=== PATIENT | female | born 1950 | race African-American/Black ===

== ENCOUNTER 2017-12-28 14:03 | Outpatient (CLI) | payer MEDICARE | END 2017-12-28 14:04 | disposition home or self-care (01) | LOC: BICULT 14:03 | PROVIDERS: ATTEND Family Medicine | DX: E04.9 Nontoxic goiter, unspecified (principal); E04.2 Nontoxic multinodular goiter | CPT/HCPCS: 76536 ==

== ENCOUNTER 2018-03-01 00:31 | Emergency (ER) | payer MEDICARE ==
[2018-03-01 01:10] LABS: #Basophils 0.1 thou/uL (0.0-0.2); #Eosinphils 0.2 thou/uL (0.0-0.7); #Lymphocytes 2.5 thou/uL (1.20-3.40); #Monocytes 0.7 thou/uL (0.11-0.59); #Neutrophils 4.3 thou/uL (1.40-6.50); %Monocytes 9.5 % (0.0-10.0); %Neutrophils 55.5 % (42.0-75.0); Hemoglobin 12.6 g/dL (12.0-16.0); Mean Corpuscular HGB CONC 32.2 g/dL (32.0-36.0); Mean Corpuscular Hemoglobin 27.6 pg (27.0-31.0); Mean Corpuscular Volume 85.8 fl (81.0-99.0); Mean Platelet Volume 9.5 fL (7.4-10.4); Platelet Count 176 thou/uL (130-400); RBC Distribution Width 13.6 % (11.5-14.5); Red Blood Cell (RBC) Count 4.55 mill/uL (4.20-5.40); White Blood Cell (WBC) Count 7.7 thou/uL (4.8-10.8)
[2018-03-01] MEDS ORDERED: Ondansetron ODT 4 MG TAB ONE (01:23)
[2018-03-01 01:38] LABS: ALT (SGPT) 15 U/L (8-55); AST (SGOT) 14 U/L (5-34); Alkaline Phosphatase 54 U/L (40-150); Anion Gap 10 mmol/L (10-20); BUN (Urea Nitrogen) 18 mg/dL (9.8-20.1); Bilirubin, Total 0.4 mg/dL (0.2-1.2); Calc. Creatinine Clearance 0 mL/min (70-130); Calcium 9.2 mg/dL (7.8-10.44); Carbon Dioxide 27 mmol/L (23-31); Chloride 106 mmol/L (98-107); Estimated GFR-MDRD 82; Globulin 3.1 g/dL (2.4-3.5); Glucose 194 mg/dL (80-115); Potassium 3.7 mmol/L (3.5-5.1); Protein, Total 7.1 g/dL (6.0-8.3); Sodium 139 mmol/L (136-145)
[2018-03-01 01:42] LABS: CKMB 0.7 ng/mL (0-6.6); Troponin I Less than 0.010 ng/mL (< 0.028)
--- NOTE | 2018-03-01 07:35 | RAD ---
SINGLE VIEW CHEST: Date: 03/01/18 COMPARISON: 04/21/09. HISTORY: Difficulty breathing that started tonight and dyspnea. FINDINGS: Single view of the chest shows a normal sized cardiomediastinal silhouette. There is no evidence of c onsolidation, mass, or pleural effusion. Degenerative changes are seen in the spine. IMPRESSION: No evidence of acute cardiopulmonary disease. POS: [facility]
== END 2018-03-01 02:44 | disposition home or self-care (01) ==
LOC: ERS 00:31
DX: R06.00 Dyspnea, unspecified (principal); R06.2 Wheezing; G47.30 Sleep apnea, unspecified; E78.00 Pure hypercholesterolemia, unspecified; I10 Essential (primary) hypertension; E11.9 Type 2 diabetes mellitus without complications; Z79.82 Long term (current) use of aspirin; Z79.899 Other long term (current) drug therapy
CPT/HCPCS: 36415; 71045; 80053; 82553; 83880; 84484; 85025; 93005; J7620; Q0162

== ENCOUNTER 2018-10-16 08:29 | Emergency (ER) | payer MEDICARE ==
[2018-10-16] MEDS ORDERED: HYDROcodone/Acetaminophen 10/325 mg Tablet ONE (09:16)
--- NOTE | 2018-10-16 11:10 | ULT ---
VENOUS DOPPLER ULTRASOUND OF THE LEFT LOWER EXTREMITY: Date: 10/16/18 HISTORY: Left lower extremity pain. FINDINGS: There is good flow, compression, and augmentation noted in the left common femoral, femoral, deep fem oral, popliteal, posterior tibial, and greater saphenous veins. IMPRESSION: No evidence of deep venous thrombosis in the left lower extremity. POS: [facility]
[2018-10-16] MEDS ORDERED: Dexamethasone 10 MG/ML VIAL ONE (11:43)
== END 2018-10-16 12:15 | disposition home or self-care (01) ==
LOC: ERS 08:29
DX: M79.662 Pain in left lower leg (principal); R60.0 Localized edema; G47.30 Sleep apnea, unspecified; I10 Essential (primary) hypertension; E78.00 Pure hypercholesterolemia, unspecified; E11.9 Type 2 diabetes mellitus without complications; Z86.73 Personal history of transient ischemic attack (TIA), and cerebral infarction without residual deficits; Z79.899 Other long term (current) drug therapy; Z79.82 Long term (current) use of aspirin; Z86.718 Personal history of other venous thrombosis and embolism; Z79.84 Long term (current) use of oral hypoglycemic drugs
CPT/HCPCS: 96372; J1100

== ENCOUNTER 2018-10-29 20:28 | Emergency (ER) | payer MEDICARE ==
[2018-10-29] MEDS ORDERED: traMADol HCl 50 MG TAB ONE (21:00)
--- NOTE | 2018-10-29 22:04 | ULT ---
LEFT LOWER EXTREMITY VENOUS DOPPLER DUPLEX ULTRASOUND: CPT: 95238 ICD-10-PCS: B54D INDICATIONS: Left lower extremity pain and edema. TECHNIQUE: Color-flow Doppler, spectral waveform analysis of pulsed Doppler, and obando-scale imaging with marie mariaelena and augmentation were used to evaluate the bilateral common femoral, femoral, popliteal, posteri or tibial, and superficial femoral veins, and the proximal portions of the profunda femoral and great er saphenous veins. FINDINGS: There is appropriate compressibility and flow within the imaged deep venous system of the left lower extremity. IMPRESSION: No deep venous thrombosis of the imaged left lower extremity. POS: [facility]
== END 2018-10-29 22:32 | disposition home or self-care (01) ==
LOC: ERS 20:28
DX: M79.662 Pain in left lower leg (principal); G47.30 Sleep apnea, unspecified; E11.9 Type 2 diabetes mellitus without complications; I10 Essential (primary) hypertension; E78.00 Pure hypercholesterolemia, unspecified; Z86.73 Personal history of transient ischemic attack (TIA), and cerebral infarction without residual deficits; Z79.82 Long term (current) use of aspirin; Z79.84 Long term (current) use of oral hypoglycemic drugs; Z79.891 Long term (current) use of opiate analgesic

== ENCOUNTER 2018-12-13 08:05 | Outpatient (CLI) | payer MEDICARE | END 2018-12-13 08:06 | disposition home or self-care (01) | LOC: BICMAMMO 08:05 | PROVIDERS: ATTEND Family Medicine | DX: Z12.31 Encounter for screening mammogram for malignant neoplasm of breast (principal); R92.1 Mammographic calcification found on diagnostic imaging of breast; Z98.890 Other specified postprocedural states; Z80.0 Family history of malignant neoplasm of digestive organs | CPT/HCPCS: 77063; 77067 ==

== ENCOUNTER 2019-01-29 07:58 | Outpatient (CLI) | payer MEDICARE ==
--- NOTE | 2019-01-29 09:59 | MRI ---
LUMBAR SPINE MRI WITHOUT CONTRAST: Date: 01/29/19 COMPARISON: None. HISTORY: Left-sided lower extremity radiculopathy with left leg swelling, numbness, and tingling. TECHNIQUE: Multiplanar, multisequence MR imaging of the lumbar spine provided without contrast. FINDINGS: The sagittal STIR imaging demonstrates no focal area of osseous marrow edema. Assuming five lumbar-ty pe vertebral bodies, the conus medullaris terminates at the L1-2 level. T12-L1: Mild bilateral facet hypertrophy. Anterior osteophyte formation noted. No significant centra l canal or neural foraminal stenosis. L1-2: Mild bilateral facet hypertrophy. Disc space narrowing and disc desiccation. No significant ce ntral canal or neural foraminal stenosis. L2-3: Mild bilateral facet hypertrophy. Anterior osteophyte formation. Intervertebral disc height an d signal intensity within normal limits with no significant central canal or neural foraminal stenosi s. L3-4: Bilateral facet hypertrophy and hypertrophy of the ligamentum flavum with disc space narrowing , disc desiccation, and minimal disc bulge. No associated central canal stenosis. Mild left neural fo raminal stenosis. No significant right neural foraminal stenosis. L4-5: Mild bilateral facet hypertrophy. There is anterior osteophyte formation. There is disc space narrowing with disc desiccation and mild disc bulge. No associated significant central canal or neura l foraminal stenosis. L5-S1: There is disc space narrowing and disc desiccation with vacuum disc formation and mild disc b ulge. No associated central canal stenosis. Mild bilateral facet hypertrophy, right greater than left . Mild right neural foraminal stenosis. No significant left neural foraminal stenosis. The imaged retroperitoneal structures demonstrate no acute findings. IMPRESSION: Degenerative disc disease as detailed above. POS: [facility]
== END 2019-01-29 07:59 | disposition home or self-care (01) ==
LOC: BICMRI 07:58
PROVIDERS: ATTEND Psychiatry & Neurology Neurology
DX: M51.16 Intervertebral disc disorders with radiculopathy, lumbar region (principal); M51.17 Intervertebral disc disorders with radiculopathy, lumbosacral region; R60.0 Localized edema; E11.59 Type 2 diabetes mellitus with other circulatory complications
CPT/HCPCS: 36415; 72148; 80053; 83036; 83880

== ENCOUNTER 2019-02-22 20:30 | Outpatient (CLI) | payer MEDICARE | END 2019-02-22 20:31 | disposition home or self-care (01) | LOC: SLEEPLAB 20:30 | PROVIDERS: ATTEND Family Medicine | DX: G47.33 Obstructive sleep apnea (adult) (pediatric) (principal); R53.83 Other fatigue; R06.83 Snoring; I10 Essential (primary) hypertension; I25.10 Atherosclerotic heart disease of native coronary artery without angina pectoris; E11.9 Type 2 diabetes mellitus without complications; G47.00 Insomnia, unspecified; G47.10 Hypersomnia, unspecified; M54.30 Sciatica, unspecified side; E66.9 Obesity, unspecified; Z68.32 Body mass index [BMI] 32.0-32.9, adult | CPT/HCPCS: 95811 ==

== ENCOUNTER 2019-05-08 09:52 | Observation (INO) | payer MEDICARE ==
[2019-05-08] MEDS ORDERED: diphenhydrAMINE 50 MG/ML VIAL ONE (10:33)
[2019-05-08] MEDS ORDERED: Famotidine 20 MG TAB ONE (10:34)
[2019-05-08] MEDS ORDERED: Famotidine/PF 20 mg/2ml Vial ONE (10:34)
[2019-05-08] MEDS ORDERED: methylPREDNISolone Sod Succ/PF 125 MG/2 ML VIAL ONE (10:34)
[2019-05-08 10:39] LABS: #Eosinphils 0.1 thou/uL (0.0-0.7); #Lymphocytes 2.7 thou/uL (1.20-3.40); #Monocytes 0.7 thou/uL (0.11-0.59); #Neutrophils 3.3 thou/uL (1.40-6.50); %Basophils 0.7 % (0.0-1.0); %Eosinophils 1.7 % (0.0-10.0); %Lymphocytes 39.6 % (21.0-51.0); %Monocytes 9.7 % (0.0-10.0); %Neutrophils 48.3 % (42.0-75.0); Hemoglobin 11.9 g/dL (12.0-16.0); Mean Corpuscular HGB CONC 32.6 g/dL (32.0-36.0); Mean Corpuscular Hemoglobin 27.2 pg (27.0-31.0); Mean Corpuscular Volume 83.5 fL (78.0-98.0); Mean Platelet Volume 8.8 fL (7.4-10.4); Platelet Count 213 thou/uL (130-400); RBC Distribution Width 13.5 % (11.5-14.5); Red Blood Cell (RBC) Count 4.36 mill/uL (4.20-5.40); White Blood Cell (WBC) Count 6.9 thou/uL (4.8-10.8)
--- NOTE | 2019-05-08 10:45 | CT ---
CT BRAIN WITHOUT CONTRAST: INDICATIONS: Level I stroke alert. COMPARISON: Prior exam dated 08/12/2009. FINDINGS: No acute infarct, hemorrhage, or hydrocephalus is present. There is mild chronic small vessel white matter ischemic change. The skull and extracranial soft tissues are unremarkable appearing. IMPRESSION: No acute intracranial abnormality. Findings called to Dr. Burgess at 10:25 a.m. on 05/08/2019. CODE CR POS: [facility]
[2019-05-08 10:46] LABS: ALT (SGPT) 22 U/L (8-55); AST (SGOT) 26 U/L (5-34); Albumin 4.3 g/dL (3.4-4.8); Alkaline Phosphatase 41 U/L (40-150); Anion Gap 14 mmol/L (10-20); BUN (Urea Nitrogen) 18 mg/dL (9.8-20.1); Bilirubin, Total 0.5 mg/dL (0.2-1.2); CK (CPK) 191 U/L (29-168); Calc. Creatinine Clearance 0 mL/min (70-130); Calcium 10.1 mg/dL (7.8-10.44); Carbon Dioxide 24 mmol/L (23-31); Chloride 103 mmol/L (98-107); Estimated GFR-MDRD 76; Globulin 3.1 g/dL (2.4-3.5); Glucose 103 mg/dL (80-115); Potassium 3.4 mmol/L (3.5-5.1); Protein, Total 7.4 g/dL (6.0-8.3); Sodium 138 mmol/L (136-145)
[2019-05-08] MEDS ORDERED: Ondansetron PF 4 MG/2 ML Vial ONE (10:59)
[2019-05-08] MEDS ORDERED: Metoclopramide HCl 10 MG/2 ML VIAL ONE (11:03)
[2019-05-08] MEDS ORDERED: EPINEPHrine 1 MG/ML AMP ONE (11:13)
[2019-05-08] MEDS ORDERED: Aspirin 300 MG Suppository ONE (11:41)
--- NOTE | 2019-05-08 12:18 | CT ---
CT angiogram head CT angiogram neck: 05/08/2019 COMPARISON: None HISTORY: Headache, blurred vision, right-sided weakness TECHNIQUE: Axial CT imaging at 1.25 mm intervals from the vertex through the lung apices with IV cont rast using CT angiogram protocol with coronal and sagittal reformatted imaging FINDINGS: Visualized lung apices unremarkable. Imaged paranasal sinuses and mastoid air cells unremarkable. The retroantral fat and the parapharyngeal fat is clear bilaterally. The parotid glands and submandibular glands demonstrate no acute findings. Region of the tonsillar pi llars appears grossly unremarkable. The thyroid gland appears diffusely prominent/enlarged, not optimally assessed on this examination. The origin of the innominate artery, right subclavian artery, right common carotid artery, left subcl nata artery, left common carotid artery, and bilateral vertebral arteries appears grossly unremarkable. There is atherosclerotic calcification involving the distal left vertebral artery with probable assoc iated moderate stenosis. Bilateral vertebral arteries are patent. The common carotid artery and the internal carotid artery demonstrates no hemodynamically significant stenosis on either side on the basis of NASCET criteria. There is atherosclerotic calcification involving the cavernous carotid arteries bilaterally. The A1 s egment is patent bilaterally and distal HAJA branches appear grossly unremarkable bilaterally. The M1 segment appears patent bilaterally and the MCA bifurcation appears within normal limits bilaterall y. Distal MCA branches are grossly unremarkable. No saccular aneurysm, high-grade stenosis, or vascular occlusion is seen involving the anterior circulation. Multiple focal areas of moderate stenosis are noted involving the proximal aspect of the left posteri or cerebral artery. No vascular occlusion or saccular aneurysm is seen involving the posterior circulation. Review of the osseous structures demonstrates multilevel cervical spine degenerative change, most pro minent at C5-6 and C6-7. Coronary arterial calcification noted. IMPRESSION: No hemodynamically significant stenosis is seen involving the carotid system on either side. Distal left vertebral artery stenosis and proximal left posterior cerebral artery stenosis. Enlarged thyroid gland. Results called to Dr. Burgess at approximately 12:05 PM 05/08/2019
[2019-05-08] MEDS ORDERED: ISOVUE-370 76%-LOCM 1 ML ONE (13:53)
[2019-05-08] MEDS ORDERED: Ondansetron PF 4 MG/2 ML Vial IVP PRN (16:13)
[2019-05-08] MEDS ORDERED: Ondansetron ODT 4 MG TAB SL PRN (16:13)
[2019-05-08] MEDS ORDERED: Sodium Chloride 0.9% 1,000 ML IV SCH (16:13)
[2019-05-08 17:03] VITALS: BMI 31.6
[2019-05-08] MEDS ORDERED: Morphine 4 MG/ML VIAL SLOW IVP PRN (17:26)
[2019-05-08] MEDS ORDERED: Acetaminophen 500 MG TAB PO PRN (17:29)
[2019-05-08] MEDS ORDERED: Labetalol HCl 100 MG/20 ML VIAL SLOW IVP PRN (17:29)
[2019-05-08] MEDS ORDERED: Dextrose 50% Abboject 50 ML SYRINGE SLOW IVP PRN (17:29)
[2019-05-08] MEDS ORDERED: Ondansetron ODT 4 MG TAB PO PRN (17:29)
[2019-05-08] MEDS ORDERED: Dextrose 5% in Water 1,000 ML IV PRN (17:29)
[2019-05-08] MEDS ORDERED: PROVENTIL INHALER 6.7 G (200 INHALATIONS) INH PRN (17:32)
[2019-05-08] MEDS: traMADol HCl 50 MG TAB PO PRN (19:16)
[2019-05-08] MEDS: Insulin Glargine 20 UNITS in Pre-Filled Syringe 1 EACH SC SCH (21:14)
[2019-05-08] MEDS: Atorvastatin Calcium 40 MG TAB PO SCH (21:15)
[2019-05-09] MEDS: traMADol HCl 50 MG TAB PO PRN ×3 (02:21→22:43)
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
[2019-05-09 05:19] LABS: #Monocytes 1.1 thou/uL (0.11-0.59); #Neutrophils 7.5 thou/uL (1.40-6.50); %Basophils 0.3 % (0.0-1.0); %Eosinophils 0.3 % (0.0-10.0); %Lymphocytes 18.8 % (21.0-51.0); %Monocytes 10.2 % (0.0-10.0); %Neutrophils 70.4 % (42.0-75.0); Mean Corpuscular HGB CONC 32.2 g/dL (32.0-36.0); Mean Corpuscular Hemoglobin 27.2 pg (27.0-31.0); Mean Corpuscular Volume 84.5 fL (78.0-98.0); Mean Platelet Volume 9.2 fL (7.4-10.4); Platelet Count 213 thou/uL (130-400); RBC Distribution Width 13.4 % (11.5-14.5); Red Blood Cell (RBC) Count 4.04 mill/uL (4.20-5.40); White Blood Cell (WBC) Count 10.7 thou/uL (4.8-10.8)
[2019-05-09 05:36] LABS: Anion Gap 11 mmol/L (10-20); BUN (Urea Nitrogen) 19 mg/dL (9.8-20.1); Calc. Creatinine Clearance 95 mL/min (70-130); Calcium 9.5 mg/dL (7.8-10.44); Carbon Dioxide 24 mmol/L (23-31); Cardiac Risk 3.8 (Less than 4.5); Chloride 104 mmol/L (98-107); Cholesterol 152 mg/dl (< 200 Desired); Estimated GFR-MDRD 74; Glucose 172 mg/dL (80-115); HDL Cholesterol 40 mg/dL (>60 Neg Risk); LDL Cholesterol, Calculated 96 mg/dL; Potassium 3.4 mmol/L (3.5-5.1); Sodium 136 mmol/L (136-145); Triglycerides 79 mg/dL (Less than 150)
[2019-05-09] MEDS: HumaLOG 300 UNITS/3 ML VIAL SC PRN ×4 (05:47→20:29)
[2019-05-09] MEDS: Ondansetron PF 4 MG/2 ML Vial IVP PRN ×2 (08:32→15:41)
[2019-05-09] MEDS: Pantoprazole 40 MG VIAL IVP SCH (08:35)
[2019-05-09] MEDS: Aspirin 325 mg Enteric Coated Tablet PO SCH (08:39)
[2019-05-09] MEDS: Oxybutynin ER 5 MG TAB PO SCH (08:40)
--- NOTE | 2019-05-09 09:38 | MRI ---
MRI BRAIN WITHOUT CONTRAST: HISTORY: TIA. CVA. Complete right-sided weakness. CORRELATION: CT brain and CTA brain from the previous day. FINDINGS: No restricted diffusion is seen. No evidence of infarct, hemorrhage, midline shift, or abnormal extr aaxial fluid collections is seen. The ventricular size is appropriate, and the basilar cisterns are patent. Multiple foci of T2 prolongation in the periventricular white matter, consistent with chroni c small vessel ischemic disease, is seen. The visualized paranasal sinuses and mastoid air cells are well aerated. IMPRESSION: No evidence of acute intracranial process. POS: [facility]
--- NOTE | 2019-05-09 12:22 | PDOC.PALCO ---
Palliative Care Consult - Consult Details Requesting Physician: Daron Reason for Consult: advance directives assistance Family Members Present: Patient daughter - Pertinent HPI Ms Castañeda awoke at 4am with a headache, slurred speech, right sided suma paresis , present to the emergency department for evaluation and subsequent admission. ROS: Cognitive delay, right sided weakness. - Pertinent PMH Diastolic Heart failure, diabetic uncontrolled, Hypertension, hyperlipidemia, TIA, Obstructive Sleep Apnea - Social History Smoking Status: Former smoker Smoking: no tobacco exposure Alcohol Use: none Drug Use History: none Living Situation: independent - Medications MAR Reviewed: Yes - Allergies Allergies/Adverse Reactions: Allergies Allergy/AdvReac Type Severity Reaction Status Date / Time Iodine and Iodide Containing Allergy Verified 05/08/19 17:07 Produc prochlorperazine AdvReac Verified 05/08/19 17:41 [From Compazine] - Objective Vital Signs: Vital Signs - Most Recent Temp Pulse Resp BP Pulse Ox 97.4 F L 71 20 125/71 98 05/09/19 11:34 05/09/19 11:34 05/09/19 11:34 05/09/19 11:34 05/09/19 11:34 Palliative Performance Scale: 70 - Physical Exam Deviation from normal: weakness HEENT: moist MMs Respiratory: unlabored breathing Cardiovascular: RRR Gastrointestinal: soft, non-tender Musculoskeletal: no edema - Plan/Recommendations Plan: *Discussed with patient the advanced directives. No specific discussion of measures she desires should she not be able to make a decision in regards to resuscitation measures or extensive lifesaving measures. Ms Castañeda requested a follow up visit to discuss. Patient expressed to Lei Hughes cinetechnician and Mariajose Caraballo to obtain MPOA listing Ms Castañeda two daughters. [30] minutes spent on this encounter with >50% of the time in counseling and coordination of care. Thank you for this very appropriate consult.
[2019-05-09] MEDS ORDERED: Polyethylene Glycol 3350 17 GM Packet PO PRN (14:22)
[2019-05-09] MEDS ORDERED: Senokot 8.6 MG TAB PO PRN (14:23)
[2019-05-09] MEDS ORDERED: Milk Of Magnesia 30 ML UDCUP PO PRN (14:23)
[2019-05-09] MEDS ORDERED: Glycerin Adult Supp. (12 ct jar) PR SCH (14:30)
[2019-05-09] MEDS ORDERED: Polyethylene Glycol 3350 17 GM Packet PO SCH (14:30)
[2019-05-09] MEDS: Insulin Glargine 20 UNITS in Pre-Filled Syringe 1 EACH SC SCH (20:30)
[2019-05-09] MEDS: Atorvastatin Calcium 40 MG TAB PO SCH (20:31)
[2019-05-09] MEDS: Docusate 100 MG CAP PO SCH (20:32)
--- NOTE | 2019-05-09 22:41 | PRG ---
DATE OF SERVICE: HISTORY OF PRESENT ILLNESS: The patient has regained much of her right-sided strength following a hemiparesis and paresthesias from TIA. MRI has come back that showed some small-vessel disease and plaque, which would further encourage the patient to maintain good blood pressure and good blood sugars. She has made large strides on initiation of insulin in the last month and ketogenic diet. The patient desires to continue this. Going forward, now placed on full-dose aspirin and increased statin. Otherwise, tolerating home medications. Working with therapy services. The patient is tolerating diet well. When posed with rehab versus home with home health, patient desired to go home with home health, has good family support. LABORATORY DATA: White blood cell count of 10.7, hemoglobin of 11.0. Sodium of 136, potassium of 3.4, creatinine of 0.9, blood glucose is 172 to 204 the last 12 hours. PHYSICAL EXAMINATION: VITAL SIGNS: Temperature 97.4, pulse is 71, respiratory rate of 20, oxygen saturation of 98% on room air, and blood pressure of 125/71. GENERAL: The patient is alert and oriented, in no acute distress. HEENT: Head is normocephalic and atraumatic. Extraocular movements are intact. Sclerae are white. Improved speech pattern. NECK: Supple. HEART: Regular rate and rhythm. No murmurs auscultated. LUNGS: Clear to auscultation bilaterally. No rubs or wheezes. ABDOMEN: Soft, nontender. Positive bowel sounds throughout. EXTREMITIES: Lower extremities without cyanosis or edema. Patient with 4/5 strength, upper and lower extremities, much improved from yesterday. ASSESSMENT AND PLAN: Transient ischemic attack, diabetes type 2, hypokalemia, anemia of chronic disease. The patient is continued on home medications, Lantus currently with sliding scale insulin. We will return to a split-mixed NPH and ketogenic diet on discharge. Currently, on full-dose aspirin, upgraded from moderate statin intensity to high statin intensity. We will have Case Management set up home health nursing, physical therapy, and speech therapy. Follow up with the patient on outpatient basis. Likely, discharge tomorrow. The patient only walked 15 feet x3 sessions with physical therapy. Goal of 200 feet tomorrow to feel safer for the patient discharge home. Job ID: [id number]
[2019-05-10 08:01] VITALS: BP 118/70; TEMP 97.6
[2019-05-10] MEDS: Docusate 100 MG CAP PO SCH (08:47)
[2019-05-10] MEDS: Pantoprazole 40 MG VIAL IVP SCH (08:47)
[2019-05-10] MEDS: Aspirin 325 mg Enteric Coated Tablet PO SCH (08:47)
[2019-05-10] MEDS: Oxybutynin ER 5 MG TAB PO SCH (08:47)
--- NOTE | 2019-05-11 05:23 | DIS ---
DATE OF ADMISSION: 05/08/2019 DATE OF DISCHARGE: 05/10/2019 PRIMARY CARE PHYSICIAN: Merritt Neri MD CHIEF COMPLAINT: Right-sided hemiparesis and slurred speech. HISTORY OF PRESENT ILLNESS AND HOSPITAL COURSE: The patient with near-total hemiparesis to right side, slurred speech occurred on the morning of , approximately 4:00 a.m. The patient did not start recovering speech until later that evening, did not start recovering upper extremity until next day, did not recover lower extremity fully until just prior to discharge. The patient was able to walk greater than 400 feet on the day of discharge, however, just one day before, the patient was only able to walk approximately 12-15 feet with Physical Therapy. Speech Therapy cleared her swallow. She tolerated diet well. She is a diabetic with only recently improved control on new start of insulin. No hypoglycemia was reported prior to this episode. MRI showed no CVA. [place] CT did not show any runoff with significant stenosis of the neck and echocardiogram repeated showed no significant changes. Neurology was consulted and felt the patient's small-vessel disease of potential plaques may warrant further workup for early stages of dementia. The patient verbalized understanding. This will be done on an outpatient basis. DISCHARGE DIAGNOSES: Include transient ischemic attack, right-sided weakness, slurred speech with some dysphagia, type 2 diabetes on insulin, anemia of chronic disease, small vessel disease of the brain. DISCHARGE MEDICATIONS: Include: 1. Benazepril hydrochlorothiazide 10/12.5 mg. 2. Furosemide 40 mg daily. 3. Gabapentin 300 mg p.o. b.i.d. p.r.n. pain and headache. 4. Split mix 70/30, 30 units subcu b.i.d. 5. Metformin 500 mg two tabs at bedtime. 6. Ecotrin 325 mg, one tab daily. 7. Atorvastatin, replacing patient's outpatient statin 400 mg one tablet p.o. at bedtime. 8. Zofran p.r.n. for nausea, 4 mg under tongue q.6 hours given patient's dizziness and nausea, still not fully resolved with ambulation. FOLLOWUP: Followup with PCP, Dr. Merritt Neri in the next 7 days, with Dr. Diaz of Neurology in the next 1 to 2 months. Job ID: [id number]
--- NOTE | 2019-05-12 15:21 | EKG ---
Test Reason : Blood Pressure : / mmHG Vent. Rate : 072 BPM Atrial Rate : 072 BPM P-R Int : 152 ms QRS Dur : 086 ms QT Int : 398 ms P-R-T Axes : 053 -14 008 degrees QTc Int : 435 ms Normal sinus rhythm with sinus arrhythmia Minimal voltage criteria for LVH, may be normal variant Borderline ECG Confirmed by PATRICIO MUNROE DO ([id number]), online content editor KAYLI ROBERTS ([id number]) on 05/12/2019 3:21:22 PM Referred By: Confirmed By:PATRICIO MUNROE DO
== END 2019-05-10 10:28 | disposition home health service (06) ==
LOC: ERS 09:52 → ERHOLD 13:55 → 2SE 16:46
PROVIDERS: ADMIT Family Medicine; ATTEND Family Medicine
DX: I65.02 Occlusion and stenosis of left vertebral artery (principal); I66.22 Occlusion and stenosis of left posterior cerebral artery; E78.5 Hyperlipidemia, unspecified; E11.9 Type 2 diabetes mellitus without complications; G47.33 Obstructive sleep apnea (adult) (pediatric); G89.29 Other chronic pain; M47.812 Spondylosis without myelopathy or radiculopathy, cervical region; I11.0 Hypertensive heart disease with heart failure; I50.30 Unspecified diastolic (congestive) heart failure; E87.6 Hypokalemia; D64.9 Anemia, unspecified; Z86.73 Personal history of transient ischemic attack (TIA), and cerebral infarction without residual deficits; Z79.4 Long term (current) use of insulin; Z79.899 Other long term (current) drug therapy; Z88.8 Allergy status to other drugs, medicaments and biological substances; Z91.041 Radiographic dye allergy status
CPT/HCPCS: 70450; 70496; 70498; 70551; 80048; 80053; 80061; 82550; 82962 ×3; 84484; 85025 ×2; 93005; 93306; 94660; 96374; 96375; 96376 ×2; 97116; 97139 ×2; 99285; G0378 ×2; 36415; 36416; C9113; J0171; J1200; J1815; J2405; J2765; J2930; Q9966; S0028

== ENCOUNTER 2019-06-12 21:30 | Emergency (ER) | payer MEDICARE ==
[2019-06-12] MEDS ORDERED: Ondansetron ODT 4 MG TAB ONE (22:13)
[2019-06-12] MEDS ORDERED: Morphine 4 MG/ML VIAL ONE (22:13)
--- NOTE | 2019-06-12 22:47 | CT ---
Head CT without contrast 06/12/2019: COMPARISON: 05/08/2019 HISTORY: Injury, trauma, pain TECHNIQUE: Axial CT imaging at 5 mm intervals from vertex through skull base without contrast FINDINGS: The visualized paranasal sinuses and mastoid air cells are well aerated. There is no displa maude calvarial fracture. There is mild prominence of bilateral lateral ventricles, stable. No intracranial hemorrhage, midline shift, or mass effect. There is atherosclerotic calcification of the distal vertebral arteries and the cavernous carotid arteries. IMPRESSION: No acute findings.
--- NOTE | 2019-06-12 22:54 | CT ---
CT facial bones: 06/12/2019 COMPARISON: None HISTORY: Injury, trauma, pain TECHNIQUE: Axial CT imaging at 2.5 mm intervals through the facial bones with coronal and sagittal re formatted imaging FINDINGS: The frontal sinuses, maxillary sinuses, sphenoid sinuses, ethmoid air cells, and mastoid ai r cells are grossly unremarkable. The zygomatic arches, pterygoid plates, and nasal bones appear intact. The mandible demonstrates no evidence for fracture and the temporomandibular joints appear unremarkab le bilaterally. The orbital floor and the medial orbital wall appears intact bilaterally. No acute fracture or evidence of dislocation is seen. IMPRESSION: No evidence for fracture of the maxillofacial bones.
== END 2019-06-12 23:52 | disposition home or self-care (01) ==
LOC: ERS 21:30
DX: S01.501A Unspecified open wound of lip, initial encounter (principal); R68.84 Jaw pain; K08.89 Other specified disorders of teeth and supporting structures; G47.30 Sleep apnea, unspecified; I10 Essential (primary) hypertension; E78.00 Pure hypercholesterolemia, unspecified; E11.9 Type 2 diabetes mellitus without complications; Z86.73 Personal history of transient ischemic attack (TIA), and cerebral infarction without residual deficits; Z79.82 Long term (current) use of aspirin; Z79.84 Long term (current) use of oral hypoglycemic drugs; W51.XXXA Accidental striking against or bumped into by another person, initial encounter
CPT/HCPCS: 70450; 70486; 96372; J2270; Q0162

== ENCOUNTER 2020-05-27 08:13 | Outpatient (CLI) | payer MEDICARE ==
--- NOTE | 2020-05-27 10:26 | MMO ---
Bilateral MAMMO Bilat Screen [facility]. CLINICAL HISTORY: Patient is 69 years old and is seen for screening. The patient has the following family history of breast cancer: 4 sisters, malignant (generic). The patient has no personal history of cancer. The patient has a history of left Ultrasound Guided Core Biopsy in YRS AGO - benign. VIEWS: The views performed were: bilateral craniocaudal with tomosynthesis and bilateral mediolateral oblique with tomosynthesis. FILMS COMPARED: The present examination has been compared to prior imaging studies performed at [facility] on 01/15/2004 and 12/13/2018, and at [facility] on 01/03/2004. This study has been interpreted with the assistance of computer-aided detection. MAMMOGRAM FINDINGS: There are scattered fibroglandular densities. Finding 1: There are stable benign appearing calcifications seen in both breasts. Finding 2: There is a stable biopsy clip seen in the left breast. There are no suspicious masses, suspicious calcifications, or new areas of architectural distortion. IMPRESSION: THERE IS NO MAMMOGRAPHIC EVIDENCE OF MALIGNANCY. A ROUTINE FOLLOW-UP MAMMOGRAM IN 1 YEAR IS RECOMMENDED. THE RESULTS OF THIS EXAM WERE SENT TO THE PATIENT. ACR BI-RADS Category 2 - Benign finding MAMMOGRAPHY NOTE: 1. A negative mammogram report should not delay a biopsy if a dominant of clinically suspicious mass is present. 2. Approximately 10% to 15% of breast cancers are not detected by mammography. 3. Adenosis and dense breasts may obscure an underlying neoplasm. Reported by: CHARLETTE MCLAUGHLIN MD Electonically Signed: [id number]
== END 2020-05-27 08:14 | disposition home or self-care (01) ==
LOC: BICMAMMO 08:13
PROVIDERS: ATTEND Family Medicine
DX: Z12.31 Encounter for screening mammogram for malignant neoplasm of breast (principal); Z80.3 Family history of malignant neoplasm of breast; Z91.89 Other specified personal risk factors, not elsewhere classified
CPT/HCPCS: 77063; 77067

== ENCOUNTER 2020-12-23 17:24 | Observation (INO) | payer MEDICARE ==
--- NOTE | 2020-12-23 18:17 | RAD ---
XR Chest 1 View Portable HISTORY: Chest pain COMPARISON: 03/01/2018 FINDINGS: The heart size is normal. The lungs are well expanded without focal areas of consolidation, pneumothorax or pleural effusions. IMPRESSION: No radiographic evidence of acute cardiopulmonary process.
[2020-12-23] MEDS ORDERED: Aspirin Chewable 81 MG TAB ONE ×2 (18:22→18:24)
[2020-12-23] MEDS ORDERED: Lorazepam 2 MG/ML VIAL ONE (18:59)
[2020-12-23 19:03] LABS: #Basophils 0.1 thou/uL (0.0-0.2); #Eosinphils 0.1 thou/uL (0.0-0.7); #Lymphocytes 3.1 thou/uL (1.20-3.40); #Monocytes 0.7 thou/uL (0.11-0.59); #Neutrophils 4.3 thou/uL (1.40-6.50); %Basophils 0.9 % (0.0-1.0); %Eosinophils 1.8 % (0.0-10.0); %Lymphocytes 37.1 % (21.0-51.0); %Monocytes 8.9 % (0.0-10.0); %Neutrophils 51.4 % (42.0-75.0); Hemoglobin 11.4 g/dL (12.0-16.0); Mean Corpuscular HGB CONC 31.9 g/dL (32.0-36.0); Mean Corpuscular Hemoglobin 27.1 pg (27.0-31.0); Mean Corpuscular Volume 85.1 fL (78.0-98.0); Mean Platelet Volume 8.8 fL (7.4-10.4); Platelet Count 217 thou/uL (130-400); RBC Distribution Width 14.2 % (11.5-14.5); Red Blood Cell (RBC) Count 4.22 mill/uL (4.20-5.40); White Blood Cell (WBC) Count 8.3 thou/uL (4.8-10.8)
[2020-12-23 19:27] LABS: ALT (SGPT) 17 U/L (8-55); AST (SGOT) 15 U/L (5-34); Albumin 4.2 g/dL (3.4-4.8); Alkaline Phosphatase 54 U/L (40-110); Anion Gap 14 mmol/L (10-20); BUN (Urea Nitrogen) 26 mg/dL (9.8-20.1); Bilirubin, Total 0.3 mg/dL (0.2-1.2); Calc. Creatinine Clearance 0 mL/min (70-130); Carbon Dioxide 27 mmol/L (23-31); Chloride 100 mmol/L (98-107); Globulin 3.1 g/dL (2.4-3.5); Glucose 132 mg/dL (80-115); Potassium 3.3 mmol/L (3.5-5.1); Protein, Total 7.3 g/dL (5.8-8.1); Sodium 138 mmol/L (136-145)
[2020-12-23] MEDS ORDERED: Dextrose 50% Abboject 50 ML SYRINGE SLOW IVP PRN (21:25)
[2020-12-23] MEDS ORDERED: HumaLOG 300 UNITS/3 ML VIAL SC PRN (21:25)
[2020-12-23] MEDS ORDERED: Dextrose 5% in Water 1,000 ML IV PRN (21:25)
[2020-12-23 22:14] VITALS: BMI 32.1
[2020-12-23] MEDS ORDERED: Enoxaparin Sodium 100 MG/ML SYRINGE SC SCH (22:30)
[2020-12-23] MEDS ORDERED: Aspirin Chewable 81 MG TAB PO SCH (22:45)
[2020-12-23 22:56] LABS: Troponin I 0.021 ng/mL (< 0.028)
[2020-12-23] MEDS ORDERED: Acetaminophen 650 MG Suppository PR PRN (23:42)
[2020-12-24 02:12] LABS: Troponin I 0.025 ng/mL (< 0.028)
[2020-12-24 04:53] LABS: Anion Gap 16 mmol/L (10-20); BUN (Urea Nitrogen) 29 mg/dL (9.8-20.1); Calc. Creatinine Clearance 82 mL/min (70-130); Calcium 9.6 mg/dL (7.8-10.44); Carbon Dioxide 23 mmol/L (23-31); Chloride 102 mmol/L (98-107); Glucose 179 mg/dL (80-115); Potassium 3.3 mmol/L (3.5-5.1); Sodium 138 mmol/L (136-145)
[2020-12-24 05:10] LABS: #Eosinphils 0.2 thou/uL (0.0-0.7); #Lymphocytes 3.1 thou/uL (1.20-3.40); #Monocytes 0.7 thou/uL (0.11-0.59); %Basophils 0.5 % (0.0-1.0); %Eosinophils 2.1 % (0.0-10.0); %Lymphocytes 39.1 % (21.0-51.0); %Monocytes 8.2 % (0.0-10.0); %Neutrophils 50.1 % (42.0-75.0); Hemoglobin 11.6 g/dL (12.0-16.0); Mean Corpuscular HGB CONC 31.5 g/dL (32.0-36.0); Mean Corpuscular Hemoglobin 26.5 pg (27.0-31.0); Mean Corpuscular Volume 84.2 fL (78.0-98.0); Mean Platelet Volume 9.3 fL (7.4-10.4); Platelet Count 224 thou/uL (130-400); RBC Distribution Width 14.1 % (11.5-14.5); Red Blood Cell (RBC) Count 4.36 mill/uL (4.20-5.40)
--- NOTE | 2020-12-24 05:18 | PDOC.HHP ---
Hospitalist BENJAMÍN Chest pain History of Present Illness: This is a 70-year-old female patient with a history of hypertension and diabetes mellitus who presents with chest pain. She has been having chest pain for a few days now which she generally ignored however today started to radiate to her neck and her arm giving her more concer mando so she came to the ED for further evaluation. Pain is 10/10 in intensity, crushing in nature with no associated anorexia vomiting or diaphoresis. She notes having had intermittent leg swelling for which he takes Lasix. She presented to the ED. Before onset of the pain patient called her PCP who advised her to take 4 baby tablets prior to coming to the ED At presentation her blood pressure was 122/71, pulse 85, respirate 18 temperature 98.3 and saturation 95% on room air. Labs showed anemia of 11.4, potassium 3.3, glucose 132 initial troponin was 0.013. Chest x-ray showed no radiological evidence of acute cardiopulmonary process. She received 3 2 5 mg aspirin. Hospitalist team was consulted to admit. Allergies/Adverse Reactions: Allergy/AdvReac Type Severity Reaction Status Date / Time Iodine and Iodide Containing Allergy Verified 05/08/19 17:07 Produc prochlorperazine AdvReac Verified 05/08/19 17:41 [From Compazine] Home Medications: Medication Instructions Recorded Confirmed Type Benazepril/Hydrochlorothiazide 1 tab PO DAILY 05/08/19 12/23/20 History [Benazepril-Hctz 10-12.5 mg Tab] Furosemide 40 mg PO DAILY 05/08/19 12/23/20 History Gabapentin 300 mg PO TID 05/08/19 12/23/20 History metFORMIN [Glucophage] 1,000 mg PO DAILY 05/08/19 12/23/20 History Atorvastatin Calcium [Lipitor] 40 mg PO HS #30 tab 05/10/19 12/23/20 Rx Aspirin [Ecotrin] 81 mg PO DAILY 12/23/20 12/23/20 History Insulin Aspart Prot/Insuln Asp 40 unit SQ BID 12/23/20 12/23/20 History [Novolog Mix 70-30 Flexpen Syrn] Past History: Past medical history: hypertension and diabetes mellitus Past surgical history cholecystectomy, tonsillectomy, Family history: Diabetes mellitus Social history: Lives with family, does not drink smoke or use illicit drugs. Hospitalist HPI ROS Constitutional: reports: weakness, malaise. denies: fever, chills, sweats Respiratory: reports: shortness of breath, SOB with excertion. denies: cough, hemoptysis Cardiovascular: reports: chest pain, orthopnea, edema. denies: palpitations, paroxysmal noc. dyspnea Gastrointestinal: denies: nausea, vomiting, abdominal pain, diarrhea Genitourinary: denies: dysuria, frequency, incontinence, hematuria Musculoskeletal: denies: neck pain, shoulder pain, arm pain Neurological: denies: weakness, numbness, incoordination All other systems reviewed; all pertinent +/- noted in HPI/Subj Hospitalist Exam Vitals: Vital Signs (12 hours) Temp Pulse Resp BP Pulse Ox 12/23/20 21:50 98.0 F 88 20 108/62 97 12/23/20 21:25 97 Weight Weight 224 lb 3.2 oz General Appearance: awake alert General - other findings: In no acute distress Eye: PERRL, anicteric sclera ENT: normocephalic atraumatic Neck: supple, symmetric, no JVD Heart: RRR, no murmur, no gallops, no rubs Respiratory: CTAB, no wheezes, no rales, no ronchi Gastrointestinal: soft, non-tender, non-distended Extremities: no cyanosis, no clubbing Extremities - other findings: Trace pedal edema. Skin: normal turgor Neurological: cranial nerve grossly intact, no focal deficits Musculoskeletal: normal tone Psychiatric: normal affect, normal behavior, A&O x 3 Hospitalist Results Result Diagrams: 12/24/20 04:16 12/24/20 04:17 Lab results: Laboratory Last Values WBC 8.0 thou/uL (4.8-10.8) 12/24/20 04:16 RBC 4.36 mill/uL (4.20-5.40) 12/24/20 04:16 Hgb 11.6 g/dL (12.0-16.0) L 12/24/20 04:16 Hct 36.8 % (36.0-47.0) 12/24/20 04:16 MCV 84.2 fL (78.0-98.0) 12/24/20 04:16 MCH 26.5 pg (27.0-31.0) L 12/24/20 04:16 MCHC 31.5 g/dL (32.0-36.0) L 12/24/20 04:16 RDW 14.1 % (11.5-14.5) 12/24/20 04:16 Plt Count 224 thou/uL (130-400) 12/24/20 04:16 MPV 9.3 fL (7.4-10.4) 12/24/20 04:16 Neutrophils % 50.1 % (42.0-75.0) 12/24/20 04:16 Lymphocytes % 39.1 % (21.0-51.0) 12/24/20 04:16 Monocytes % 8.2 % (0.0-10.0) 12/24/20 04:16 Eosinophils % 2.1 % (0.0-10.0) 12/24/20 04:16 Basophils % 0.5 % (0.0-1.0) 12/24/20 04:16 Neutrophils # 4.0 thou/uL (1.40-6.50) 12/24/20 04:16 Lymphocytes # 3.1 thou/uL (1.20-3.40) 12/24/20 04:16 Monocytes # 0.7 thou/uL (0.11-0.59) H 12/24/20 04:16 Eosinophils # 0.2 thou/uL (0.0-0.7) 12/24/20 04:16 Basophils # 0.0 thou/uL (0.0-0.2) 12/24/20 04:16 Sodium 138 mmol/L (136-145) 12/24/20 04:17 Potassium 3.3 mmol/L (3.5-5.1) L 12/24/20 04:17 Chloride 102 mmol/L (98-107) 12/24/20 04:17 Carbon Dioxide 23 mmol/L (23-31) 12/24/20 04:17 Anion Gap 16 mmol/L (10-20) 12/24/20 04:17 BUN 29 mg/dL (9.8-20.1) H 12/24/20 04:17 Creatinine 1.05 mg/dL (0.6-1.1) 12/24/20 04:17 Estimated GFR (MDRD) 63 12/24/20 04:17 Glucose 179 mg/dL (80-115) H 12/24/20 04:17 Calcium 9.6 mg/dL (7.8-10.44) 12/24/20 04:17 Total Bilirubin 0.3 mg/dL (0.2-1.2) 12/23/20 18:52 AST 15 U/L (5-34) 12/23/20 18:52 ALT 17 U/L (8-55) 12/23/20 18:52 Alkaline Phosphatase 54 U/L (40-110) 12/23/20 18:52 Troponin I 0.025 ng/mL (< 0.028) 12/24/20 00:57 B-Natriuretic Peptide Less than 10.0 pg/mL (0-100) 12/23/20 18:52 Serum Total Protein 7.3 g/dL (5.8-8.1) 12/23/20 18:52 Albumin 4.2 g/dL (3.4-4.8) 12/23/20 18:52 Globulin 3.1 g/dL (2.4-3.5) 12/23/20 18:52 Albumin/Globulin Ratio 1.4 g/dL (1.2-2.2) 12/23/20 18:52 Hospitalist H&P A/P Plan: This is a 70-year-old female patient with a history of hypertension and diabetes mellitus who presents with worsening chest pain and shortness of breath concerning for unstable angina and possible heart failure. Chest pain Likely unstable angina Typical with radiation up her neck and worse on exertion No relief until presentation to the ED. Received aspirinwe will receive nitro/morphine for pain Given the ongoing nature of the pain I will start Lovenox therapeutic dosethis can be discontinued evaluation in a.m. Trend troponin Possible heart failure exacerbation Diuresis Lasix Check BMP Monitor input output. Hypertension BP stable Monitor Resume home meds once verified. Diabetes mellitus Correctional insulin Monitor glucose. VT prophylaxisLovenox
[2020-12-24] MEDS ORDERED: Potassium Chloride 20 MEQ TAB PO SCH (05:30)
[2020-12-24] MEDS ORDERED: Electrolyte Replacement Protocol 1 EACH FS SCH (05:30)
[2020-12-24] MEDS ORDERED: Magnesium 2 GM/50 ML 2 GM in Premix Bag 1 BAG IVPB SCH (07:30)
[2020-12-24 08:21] LABS: SARS-CoV-2 PCR by NAA Not Detected (NotDetected)
[2020-12-24] MEDS ORDERED: Nitroglycerin 2% Ointment 1 INCH/1 GM Packet TOP SCH (09:00)
[2020-12-24] MEDS ORDERED: Enoxaparin Sodium 100 MG/ML SYRINGE SC SCH (09:00)
[2020-12-24] MEDS ORDERED: ADENOSINE 60 MG/20 ML VIAL ONE (10:47)
--- NOTE | 2020-12-24 10:59 | NM ---
Radionucleotide stress only myocardial perfusion scan with CT attenuation correction and SPECT imagin g Left ventricular wall motion evaluation and ejection fraction Streak: Chest pain. FINDINGS: Adenosine protocol. There is homogeneous uptake of radiotracer throughout the left ventricu lar myocardium. No focal perfusion defect. QGS analysis of gated SPECT images shows no focal wall motion abnormalities. Ejection fraction calcul ated at 72%. IMPRESSION : Normal myocardial perfusion scan. Normal LVEF.
[2020-12-24 11:55] VITALS: BP 104/72; TEMP 97.9
[2020-12-24 13:42] LABS: Hemoglobin 10.8 g/dL (12.0-16.0); Platelet Count 188 thou/uL (130-400)
[2020-12-24] MEDS ORDERED: Furosemide 20 MG/2 ML VIAL SLOW IVP SCH (21:36)
--- NOTE | 2020-12-26 09:16 | DIS ---
DATE OF ADMISSION: 12/23/2020 DATE OF DISCHARGE: 12/24/2020 DISCHARGE DIAGNOSES: 1. Atypical chest pain, likely musculoskeletal. 2. Diabetes mellitus, type 2. 3. Hypertension, stable. 4. Chronic kidney disease, stage 2. CONSULTATIONS: None. PERTINENT LABORATORY AND X-RAY FINDINGS: Potassium ranged between 3.3 to 5.0. Creatinine ranged between 1.05 to 1.22. Estimated GFR ranged between 53 to 63. Magnesium level 2.0. BNP less than 10. Troponin I negative x3. CBC showed a hemoglobin ranging between 10.8 to 11.6. Portable chest x-ray dated 12/23/2020 showed no acute cardiopulmonary process. Cardiolite stress test dated 12/24/2020, showed no evidence for reversible or fixed ischemia with calculated ejection fraction of 72%. HOSPITAL COURSE: The patient was observed on the telemetry unit after initially presenting with chest pain in the context of hypertension and diabetes mellitus type 2. The patient underwent serial cardiac biomarkers, which were negative x3, proceeding to Cardiolite stress testing showing no evidence of reversible or fixed ischemia with calculated ejection fraction of 72%. Telemetry monitoring showed no evidence of acute arrhythmia or dysrhythmia with sinus mechanism throughout the hospital course. I have examined the patient at the time of discharge and discussed followup instructions. The patient ready for discharge on 12/24/2020. DISCHARGE MEDICATIONS: 1. Benazepril/hydrochlorothiazide of 10/12.5 mg one tablet p.o. daily. 2. Enteric-coated aspirin 81 mg p.o. daily. 3. Lasix 40 mg p.o. daily. 4. Gabapentin 300 mg p.o. t.i.d. 5. Metformin 1000 mg p.o. daily. 6. NovoLog 70/30 of 40 units subcutaneously b.i.d. 7. Lipitor 40 mg p.o. at bedtime. FOLLOWUP: The patient may follow up with her primary care provider, Dr. Merritt Neri. CONDITION ON DISCHARGE: Stable. ACTIVITY: Ad-catherine. DIET: Heart healthy and ADA. CODE STATUS: Full. DISPOSITION: Home on 12/24/2020. Job ID: [id number]
--- NOTE | 2020-12-27 10:28 | EKG ---
Test Reason : CHEST PAIN Blood Pressure : / mmHG Vent. Rate : 080 BPM Atrial Rate : 080 BPM P-R Int : 154 ms QRS Dur : 084 ms QT Int : 374 ms P-R-T Axes : 058 -08 033 degrees QTc Int : 431 ms Normal sinus rhythm Leftward axis Anterolateral ischemia Abnormal ECG Confirmed by ADAIR ROWLAND, NORA Gordon ([id number]), image editor KAYLI ROBERTS ([id number]) on 12/27/2020 10:28:08 AM Referred By: Confirmed By:NORA BORRERO MD
== END 2020-12-24 18:20 | disposition home or self-care (01) ==
LOC: ERS 17:24 → 2NO 20:19
PROVIDERS: ADMIT Student in an Organized Health Care Education/Training Program; ATTEND Family Medicine
DX: R07.89 Other chest pain (principal); I12.9 Hypertensive chronic kidney disease with stage 1 through stage 4 chronic kidney disease, or unspecified chronic kidney disease; E11.22 Type 2 diabetes mellitus with diabetic chronic kidney disease; N18.2 Chronic kidney disease, stage 2 (mild); D64.9 Anemia, unspecified; E78.5 Hyperlipidemia, unspecified; E11.40 Type 2 diabetes mellitus with diabetic neuropathy, unspecified; I25.10 Atherosclerotic heart disease of native coronary artery without angina pectoris; Z86.73 Personal history of transient ischemic attack (TIA), and cerebral infarction without residual deficits; Z79.4 Long term (current) use of insulin; Z79.82 Long term (current) use of aspirin; Z79.899 Other long term (current) drug therapy; Z88.8 Allergy status to other drugs, medicaments and biological substances; Z91.041 Radiographic dye allergy status; Z20.822 Contact with and (suspected) exposure to COVID-19
CPT/HCPCS: 71045; 78452; 80048; 80053; 82565; 82962; 83735; 83880; 84132; 84484 ×3; 85014; 85018; 85025 ×2; 85049; 93005; 93017; 94760 ×3; 99285; A9500; U0003; U0005; 36415; 36416; 87635; 96372; 96374; G0378; J0153; J1650; J2060; J3475

== ENCOUNTER 2021-02-09 17:49 | Emergency (ER) | payer MEDICARE ==
[2021-02-09 21:40] LABS: #Basophils 0.1 thou/uL (0.0-0.2); #Eosinphils 0.2 thou/uL (0.0-0.7); #Lymphocytes 3.2 thou/uL (1.20-3.40); #Monocytes 0.7 thou/uL (0.11-0.59); #Neutrophils 5.6 thou/uL (1.40-6.50); %Basophils 0.7 % (0.0-1.0); %Lymphocytes 32.8 % (21.0-51.0); %Monocytes 7.2 % (0.0-10.0); %Neutrophils 57.3 % (42.0-75.0); Hemoglobin 10.9 g/dL (12.0-16.0); Mean Corpuscular HGB CONC 32.9 g/dL (32.0-36.0); Mean Corpuscular Hemoglobin 27.7 pg (27.0-31.0); Mean Corpuscular Volume 84.2 fL (78.0-98.0); Mean Platelet Volume 9.1 fL (7.4-10.4); Platelet Count 208 thou/uL (130-400); RBC Distribution Width 14.3 % (11.5-14.5); Red Blood Cell (RBC) Count 3.93 mill/uL (4.20-5.40); White Blood Cell (WBC) Count 9.8 thou/uL (4.8-10.8)
[2021-02-09 22:03] LABS: ALT (SGPT) 18 U/L (8-55); AST (SGOT) 17 U/L (5-34); Albumin 3.9 g/dL (3.4-4.8); Alkaline Phosphatase 62 U/L (40-110); Anion Gap 13 mmol/L (10-20); BUN (Urea Nitrogen) 30 mg/dL (9.8-20.1); Bilirubin, Total 0.2 mg/dL (0.2-1.2); CK (CPK) 210 U/L (29-168); Calc. Creatinine Clearance 0 mL/min (70-130); Calcium 9.6 mg/dL (7.8-10.44); Carbon Dioxide 26 mmol/L (23-31); Chloride 102 mmol/L (98-107); Globulin 3.3 g/dL (2.4-3.5); Glucose 297 mg/dL (80-115); Potassium 3.4 mmol/L (3.5-5.1); Protein, Total 7.2 g/dL (5.8-8.1); Sodium 138 mmol/L (136-145)
== END 2021-02-09 22:44 | disposition left against medical advice (07) ==
LOC: ERS 17:49
DX: R55 Syncope and collapse (principal); I25.10 Atherosclerotic heart disease of native coronary artery without angina pectoris; E78.5 Hyperlipidemia, unspecified; I10 Essential (primary) hypertension; G47.30 Sleep apnea, unspecified; Z79.4 Long term (current) use of insulin; Z79.899 Other long term (current) drug therapy; E11.40 Type 2 diabetes mellitus with diabetic neuropathy, unspecified; Z86.73 Personal history of transient ischemic attack (TIA), and cerebral infarction without residual deficits
CPT/HCPCS: 36415; 70450; 72125; 82550; 84484; 85025; 93005

== ENCOUNTER 2021-12-16 08:22 | Outpatient (CLI) | payer MEDICARE | END 2021-12-16 08:23 | disposition home or self-care (01) | LOC: BICMAMMO 08:22 | PROVIDERS: ATTEND Family Medicine | DX: Z12.31 Encounter for screening mammogram for malignant neoplasm of breast (principal); Z80.3 Family history of malignant neoplasm of breast | CPT/HCPCS: 77063; 77067 ==

== ENCOUNTER 2022-01-28 07:36 | Outpatient (CLI) | payer MEDICARE | END 2022-01-28 07:37 | disposition home or self-care (01) | LOC: CT 07:36 | PROVIDERS: ATTEND Family Medicine | DX: K57.92 Diverticulitis of intestine, part unspecified, without perforation or abscess without bleeding (principal); K57.30 Diverticulosis of large intestine without perforation or abscess without bleeding | CPT/HCPCS: 74176 ==

== ENCOUNTER 2023-02-09 13:37 | Outpatient (CLI) | payer MEDICARE | END 2023-02-09 13:38 | disposition home or self-care (01) | LOC: ULT 13:37 | PROVIDERS: ATTEND Family Medicine | DX: M79.662 Pain in left lower leg (principal) ==

== ENCOUNTER 2023-03-03 07:56 | Outpatient (CLI) | payer MEDICARE | END 2023-03-03 07:57 | disposition home or self-care (01) | LOC: BICMAMMO 07:56 | PROVIDERS: ATTEND Family Medicine | DX: Z12.31 Encounter for screening mammogram for malignant neoplasm of breast (principal) | CPT/HCPCS: 77063; 77067 ==